=== PATIENT | male | born 1995 | race Caucasian/White ===

== ENCOUNTER 2019-10-25 09:18 | Emergency (ER) | payer BC, SELFPAY ==
[2019-10-25 09:23] VITALS: BP 124/77; PULSE 77; RESP 18; TEMP 36.3; O2SAT 97; BMI 20.9
[2019-10-25 09:28] VITALS: BP 127/78; PULSE 78; RESP 18; O2SAT 96
--- NOTE | 2019-10-25 09:30 | ED_ITS ---
HPI - Dental/Oral General: Chief complaint: Dental/Oral Stated complaint: dental pain Time Seen by Provider: 10/25/19 09:30 History of Present Illness: HPI Narrative: Patient is a 24-year-old male comes to the ED with right-sided and oral pain. Patient states that yesterday he started having some pain on the inside of his mouth and gums in the back lower right mandible region. He denies any dental pain, fevers, chills, nausea, vomiting, shortness of breath or any obstruction of airway. He currently rates the pain a 6 out of 10. Associated symptoms: Denies fever(s) or odynophagia Review of Systems Const: Denies: fever(s), chills or fatigue Eyes: Denies: change in vision or eye discomfort ENMT: Reports: mouth pain; Denies: throat pain, odynophagia, nasal discharge or nasal congestion Card: Denies: chest pain, palpitations, edema, swelling of feet/ankles, dyspnea on exertion or orthopnea Resp: Denies: dyspnea, productive cough or non-productive cough GI: Denies: abdominal pain, nausea, vomiting, diarrhea, constipation or hematochezia : Denies: flank pain, difficulty urinating, dysuria or hematuria Musc: Denies: neck pain, back pain or extremity swelling Skin/Breast: Denies: rash or new lesions Neuro: Denies: headache(s), numbness in extremities or weakness in extremities Physical Exam Const: COMMON NORMALS: no acute distress, patient oriented x3, healthy appearing and alert GENERAL APPEARANCE: cooperative and comfortable HENMT: COMMON NORMALS: normocephalic HEAD & SCALP: normocephalic MOUTH: Normal oral and palatal mucosa present TEETH & GINGIVA: Yes gingiva abnormal (Right lower mandible) edematous and tender THROAT: posterior oropharynx normal and uvula midline Neck/C-Spine: COMMON NORMALS: supple GENERAL: Yes normal visual inspection Resp: COMMON NORMALS: normal respiratory effort, No retractions, No use of accessory muscles and clear to auscultation bilaterally AUSCULTATION: clear to auscultation bilaterally Cardio: COMMON NORMALS: regular rate, regular rhythm, S1 normal heart sound present, S2 normal heart sound present, No gallops present (Cardio), No clicks present (Cardio), No murmurs present (Cardio) and Peripheral pulses 2+ throughout RATE: regular rate RHYTHM: regular rhythm HEART SOUNDS: S1 normal heart sound present and S2 normal heart sound present PERIPHERAL PULSES: Peripheral pulses 2+ throughout GI: COMMON NORMALS: Normal to inspection, nondistended, normoactive bowel sounds present, Soft to palpation, non-tender and no masses PALPATION: Yes Soft to palpation : COMMON NORMALS: Yes no CVA tenderness BLADDER/KIDNEY EXAM: Yes no CVA tenderness Back/Pelvis: COMMON NORMALS: no CVA tenderness Extremity: COMMON NORMALS: normal to inspection Neuro: COMMON NORMALS: patient oriented x3 and moves all extremities SENSORIUM/ORIENTATION: Yes alert Skin: COMMON NORMALS: no rashes or lesions noted GENERAL SKIN EXAM: no rashes or lesions noted and dry skin Course Vital Signs: Vital signs: Vital Signs Temperature 97.3 F L 10/25/19 09:23 Pulse Rate 80 10/25/19 09:53 Respiratory Rate 17 10/25/19 09:53 Blood Pressure 121/79 10/25/19 09:53 Pulse Oximetry 99 10/25/19 09:53 MDM - Dental/Oral MDM Narrative: Medical decision making narrative: Patient is a 24-year-old male comes to the ED with oral pain. Exam shows some gingival swelling and tenderness over the right lower mandible. No airway obstruction. patient was put on a prescription of clindamycin and told to contact dentist to set up a follow-up appointment. Patient understood and agreed with plan. Discharge Plan Discharge Patient Disposition: Home Clinical Impression: Acute oral pain Condition: Stable Prescriptions: New clindamycin HCl 150 mg capsule 300 mg PO QID 7 Days Qty: 56 RF: 0 Discharge Orders: Discharge Order (Routine); Ordered 10/25/19 Ordered By: Guanakito Pulido Referrals: Edis Hart MD [Primary Care Provider] - Discharge Diet: Regular Discharge Activity: Resume usual activity Activity Restrictions/Additional Instructions: Follow-up with Dentist as directed. Take medications as prescribed. Take [id number] ibuprofen or Tylenol for pain. Return to the ER or your medical provider if condition worsens. Please read and understand discharge instructions. If any questions, please ask. Discharge Date/Time: 10/25/19 09:53 Coding Level of Care Code ED Librarian Specialist for [facility] Fwd Exam Comprehensive
[2019-10-25 09:53] VITALS: BP 121/79; PULSE 80; RESP 17; O2SAT 99
== END 2019-10-25 09:53 | disposition home or self-care (01) ==
PROVIDERS: Emergency Provider Physician Assistant; PCP Family Medicine
DX: K08.89 Other specified disorders of teeth and supporting structures (principal)
CPT/HCPCS: 12345; 99282